=== PATIENT | female | born 1985 | race Caucasian/White ===

== ENCOUNTER 2018-10-20 16:10 | Inpatient (IN) ==
[2018-10-20] MEDS ORDERED: TYLENOL PO ONE (16:29)
[2018-10-20] MEDS ORDERED: NS 1,000 ML IV ONE ×3 (16:29→16:37)
[2018-10-20] MEDS ORDERED: ROCEPHIN 1 GM in NS 50 ML IV ONE (16:35)
[2018-10-20] MEDS ORDERED: ZOFRAN IV ONE (16:37)
[2018-10-20] MEDS ORDERED: MORPHINE IV ONE ×3 (16:37→19:35)
[2018-10-20 16:44] LABS: BASO# 0.03 X1000 (0.0-0.2); BASO% 0.2 % (0.0-0.8); EOS# 0.08 X1000 (0.0-0.7); EOS% 0.5 % (0.0-10.0); HEMATOCRIT 37.4 % (37.0-47.0); HEMOGLOBIN 12.6 g/dL (12.0-16.0); IMM GRAN# 0.09 X1000 (0.0-0.04); IMM GRAN% 0.6 % (0.0-0.5); LYMPH# 2.38 X1000 (1.2-3.4); MCH 30.8 PG (27-31); MCHC 33.7 g/dL (33-37); MCV 91.4 FL (81-99); MONO# 1.41 X1000 (0.11-0.59); MONO% 9.5 % (1.7-9.3); MPV 9.1 FL (7.4-10.4); NEUT# 10.87 X1000 (1.4-6.5); NEUT% 73.2 % (42.2-75.2); PLT 384 X1000 (130-400); RBC 4.09 XMIL (4.2-5.4); RDW 13.3 % (11.5-14.5); WBC 14.86 X1000 (4.8-10.8)
[2018-10-20 17:10] LABS: AGAP 17; ALB/GLOB RATIO 1.2; ALBUMIN 3.6 g/dL (3.5-5.0); ALKALINE PHOSPHATASE 115 U/L (32-104); AMYLASE 27 U/L (20-200); BUN 8 mg/dL (8-22); CALCIUM 8.6 mg/dL (8.8-10.2); CHLORIDE 91 mmol/L (98-107); CK PROFILE 25 U/L (24-173); COSMO 261; CREATININE 0.7 mg/dL (0.5-0.9); ESTIMATED GFR > 60; GLUCOSE 140 mg/dL (70-104); GOT 17 U/L (10-30); GPT 24 U/L (10-36); LIPASE 18 U/L (13-60); POTASSIUM 3.7 mmol/L (3.5-5.1); SODIUM 130 mmol/L (136-145); TCO2 22 mmol/L (25-35); TOTAL BILIRUBIN 0.24 mg/dL (0.20-1.00); TOTAL PROTEIN 6.6 g/dL (6.3-8.3)
[2018-10-20 17:31] LABS: INR 0.93; PROTIME 13.2 Seconds (11.0-16.0)
[2018-10-20 17:32] LABS: PTT 36.5 Seconds (22.3-41.8)
--- NOTE | 2018-10-20 18:02 | Diag Imaging Result Doc PS360 ---
CHEST-1 VIEW - 10/20/2018 INDICATION: FEVER COMPARISON: None FINDINGS: The lungs are normally expanded and clear. Heart size and mediastinal contours are normal. No pneumothorax or pleural effusion. IMPRESSION: Negative exam. Electronically signed by David Iniguez 10/20/2018 6:00 PM
--- NOTE | 2018-10-20 18:12 | Diag Imaging Result Doc PS360 ---
CT RENAL STONE SEARCH - 10/20/2018 INDICATION: LLQ, back pain COMPARISON: None FINDINGS: No radiodense renal stones. No significant hydronephrosis. There is some perinephric edema about the left kidney. The ureters and urinary bladder appear normal. Uterus, ovaries, and rectum are normal. No bowel obstruction or inflammation. The lung bases are clear and the heart size is normal. Bony structures are intact. IMPRESSION: No radiodense renal stones. There is significant perinephric edema all about the left kidney. This is highly suggestive of pyelonephritis or a recently passed stone. Correlate clinically. This exam was performed using automated exposure control, adjustment of mA or kV according to patient size, and/or use of iterative reconstruction technique Electronically signed by David Iniguez 10/20/2018 6:09 PM
[2018-10-20] MEDS ORDERED: CIPRO 400 MG/D5W 400 MG/200 ML IVPB IV ONE (18:17)
[2018-10-20 18:25] LABS: URINE SOURCE CATH
[2018-10-20 18:34] LABS: BILIRUBIN URINE NEGATIVE (NEGATIVE); BLOOD URINE SMALL (NEGATIVE); COLOR YELLOW; GLUCOSE URINE NEGATIVE (NEGATIVE); KETONE URINE NEGATIVE (NEGATIVE); LEUKOCYTES URINE SMALL (NEGATIVE); NITRITE URINE NEGATIVE (NEGATIVE); PH URINE 6.5; PROTEIN URINE 30 mg/dL (NEGATIVE); SP GRAVITY URINE 1.002; TURBIDITY URINE CLEAR (CLEAR); UROBILINOGEN URINE 2 mg/dL (NORMAL)
[2018-10-20 18:36] LABS: UR EPITHELIAL CELLS <10 /HPF (<10); URINE BACTERIA NEGATIVE /HPF; URINE RBC <10 /HPF (<10); URINE WBC <10 /HPF (<10)
--- NOTE | 2018-10-20 18:42 | PROVIDER DOCUMENTATION ---
This chart was entered by Kiersten Wooten Scribe, acting as scribe for Faizan Bowman CRNP. HPI-General Adult - General Chief Complaint: Flu Symptoms Stated Complaint: LOW BACK PAIN STOMACH PAIN/FEVER Time Seen by Provider: 10/20/18 16:14 Source: patient Allergies/Adverse Reactions: Patient Allergies Allergy/AdvReac Type Severity Reaction Status Date / Time No Known Allergies Allergy Verified 10/20/18 17:05 Home Medications: Home Medication List Medication Instructions Recorded Confirmed Last Taken Type NK [No Home Medications] 10/20/18 10/20/18 Unknown History - History of Present Illness -Gen Adult Nature of Presenting Problems: Patient is a 33 year old female who presents to the ED with multiple complaints. Patient states pain to lower abdomen, left flank and back. Patient states fever, nausea, vomiting and diarrhea. Patient states symptoms started 5 days ago. Patient states taking Tylenol at 1200. Patient denies urinary symptoms. Location of Pain/Injury: reports: abdomen (lower), back, other (left flank) Pain Radiation: reports: no radiation Quality of Pain: reports: aching Severity: reports: moderate Onset/Duration: reports: 5 days ago Timing: reports: still present Context/Activities at Onset: reports: light activity Modifying Factors: improves with: breathing (worse) Associated Symptoms: reports: diarrhea, fever/chills (fever), nausea, vomiting Similar Symptoms Previously?: Yes Recently seen or treated by another doctor?: No Review of Systems - Adult - REVIEW OF SYSTEMS - ADULT Constitutional: reports: fever. denies: chills, fatique Eyes: reports: no symptoms reported Ears, Nose, Mouth & Throat: reports: no symptoms reported Cardiovascular: reports: no symptoms reported Respiratory: reports: no symptoms reported Gastrointestinal: reports: abdominal pain (lower), diarrhea, nausea, vomiting Genitourinary: reports: flank pain (left). denies: dysuria, hematuria Musculoskeletal: reports: back pain. denies: joint pain, neck pain Integumentary: reports: no symptoms reported Neurological: reports: no symptoms reported Psychiatric: reports: no symptoms reported Endocrine: reports: no symptoms reported Hematologic/Lymphatic: reports: no symptoms reported Allergic/Immunologic: reports: no symptoms reported All Other Systems: Reviewed and Negative Past History - Adult - PAST MEDICAL HISTORY-ADULT Review of Records: reports: Nursing Assessment Review, Medications Reviewed, Social history reviewed & non-contributory. Major Childhood Illnesses: reports: denies history Cardiovascular: reports: denies history Respiratory: reports: denies history Gastrointestinal: reports: denies history Obstetrical/Gynecological: reports: denies history Genitourinary: reports: denies history Musculoskeletal: reports: denies history Neurological: reports: denies history Psychiatric: reports: denies history Endocrine/Immune: reports: denies history Other Conditions: reports: denies history - PRIOR SURGERIES/PROCEDURES Surgical/Procedure History: reports: reviewed, not pertinent - IMMUNIZATION STATUS Childhood Immunizations: See Nurse Assessment Flu Vaccine: See Nurse Assessment - FAMILY HISTORY Family History: reviewed, not pertinent - SOCIAL HISTORY Smoking: cigarettes, less than 1 pack/day Provider spent 3-5 mins advising pt. on dangers of tobacco.: Discussed manners to quit use, and f/u contacts for add'l counseling. Substance Use: denies Living Situation: family Physical Exam-General - PHYSICAL EXAM-ADULT Initial Vital Signs Reviewed: Yes - CONSTITUTIONAL General Appearance: alert, mild distress - HEAD, EARS, NOSE, MOUTH & THROAT HENMT: other (dry mucous membranes) - RESPIRATORY Respiratory: chest non-tender, lungs clear, normal breath sounds - CARDIOVASCULAR Cardiovascular: normal peripheral pulses, tachycardia - GASTROINTESTINAL (ABDOMEN) Abdominal Exam: normal bowel sounds, soft, tenderness (LLQ) - MUSCULOSKELETAL Back Exam: no vertebral tenderness, CVA tenderness (left) Extremity: non-tender, normal inspection - SKIN Integumentary: normal color, normal turgor, warm/dry - NEUROLOGIC Neurologic: grossly normal - PSYCHIATRIC Psych/Mental Status: other (distressed) Progress - PLAN OF CARE/RESULTS Progress/Plan/Lab Results: Vital Signs - 8 hr 10/20/18 16:15 Temperature 101 F H Pulse Rate 152 H Respiratory Rate 20 Blood Pressure 123/53 Orders Category Date Time Status Cardiac Monitoring DIRECTED Care 10/20/18 16:21 Active IV Insertion ORDERED Care 10/20/18 16:21 Active Notify MD of + Sepsis Screen NOW Care 10/20/18 16:21 Active Notify Physician As Ordered Care 10/20/18 16:21 Active CHEST-1 VIEW [RAD] Stat Exams 10/20/18 16:21 Ordered BLOOD CULTURE [BLDCUL] Stat Lab 10/20/18 16:21 Uncollected CBC WITH DIFF [HEME] Stat Lab 10/20/18 16:21 Uncollected CK PROFILE [SP CHEM] Stat Lab 10/20/18 16:21 Uncollected COMPREHENSIVE METABOLIC PANEL [CHEM] Stat Lab 10/20/18 16:21 Uncollected LACTATE, PLASMA [CHEM] Q3H Lab 10/20/18 16:30 Uncollected LACTATE, PLASMA [CHEM] Q3H Lab 10/20/18 19:30 Uncollected LACTATE, PLASMA [CHEM] Q3H Lab 10/20/18 22:30 Uncollected PROTIME WITH INR [COAG] Stat Lab 10/20/18 16:21 Uncollected PTT [COAG] Stat Lab 10/20/18 16:21 Uncollected TROPONIN T Stat Lab 10/20/18 16:21 Uncollected URINALYSIS W/POSS RFLX CULT [URINALYSIS] Stat Lab 10/20/18 16:21 Uncollected Oxygen Device Stat Oth 10/20/18 16:21 Active Result Diagrams: 10/20/18 16:30 10/20/18 16:30 - REASSESSMENT Reassessment #1 Time Reassessed: 17:25 (HR 110bpm.) Reassessment #2 Time Reassessed: 18:21 (Reviewed results with pt. Informed of possible admission. Pt states she is feeling some better. BP 97/60, HR 104 so much improvement from arrival.) Status: improving - EKG 1 Time of EKG reading by physician:: 16:22 EKG Read and Signed by:: Leander Abad EKG Interpretation (*Must complete 3 of following elements*): Abnormal Rate: 146 Rhythm: sinus tachycardia Comments: ST & T wave abnormality, consider anterolateral ischemia - XRAY 1 XRAY Study: Chest Impression: See EMR Report (The lungs are normally expanded and clear. Heart size and mediastinal contours are normal. No pneumothorax or pleural effusion. IMPRESSION: Negative exam. Electronically signed by David Iniguez 10/20/2018 6:00 PM) - CT/MRI 1 CT Study: Renal Stone Impression: See EMR Report (No radiodense renal stones. No significant hydronephrosis. There is some perinephric edema about the left kidney. The ureters and urinary bladder appear normal. Uterus, ovaries, and rectum are normal. No bowel obstruction or inflammation. The lung bases are clear and the heart size is normal. Bony structures are intact. IMPRESSION: No radiodense renal stones. There is significant perinephric edema all about the left kidney. This is highly suggestive of pyelonephritis or a recently passed stone. Correlate clinically. This exam was performed using automated exposure control , adjustment of mA or kV according to patient size, and/or use of iterative reconstruction technique Electronically signed by David Iniguez 10/20/2018 6: 09 PM) - CONSULTS/PCP/HOSPITALIST Notification #1 *Consult/PCP/Hospitalist*: hospitalist Time Discussed: 18:40 (Huey states will go to [facility] hospitalist) Reason/Comments: consult with Huey Consult Disposition: Admit Departure - Departure Date of Disposition Decision: 10/20/18 Time of Disposition Decision: 18:41 DIAGNOSIS: Pyelonephritis Sepsis Qualifiers: Sepsis type: sepsis due to unspecified organism Qualified Code(s): A41.9 - Sepsis, unspecified organism Disposition: ADMITTED INPATIENT 09 Certified Medical Emergency: Emergent Condition: Fair Referrals and Follow-Ups: None,PCP [Primary Care Provider] - - Critical Care Note This patient required my direct & personal management of CC.: Yes Total Time (mins): 45 Critical Care Statement: This patient required my direct personal management to treat or rule out processes, the absence of which, could potentiallly result in sudden, clinically significant life or limb threatening deterioration. Attestation - Physician/ SELAM Attestation Patient care was provided by Advanced Practice Provider:: Yes Advanced Practice Provider:: Faizan Bowman Advanced Practice Provider documentation review:: The Mid-level provider documentation, treatment plan and medical decision making was reviewed by the physician who agrees with all treatment and medical decision making by the MLP. The physician spent face to face time with patient:: No Advanced Practice Provider documentation review:: Supervising physician onsite and consulted in the evaluation and care of this patient. The physician did not have a face to face encounter with the patient. This chart was documented by the indicated scribe, (Kiersten Wooten Scribe) and accurately reflects the services I performed and decisions made by me, Faizan Bowman, SETH, as attested by the provider's signature.
[2018-10-20 19:14] LABS: UR AMPHETAMINES QUAL NONE DETECTED (NONE DETECT); UR BARBITUATES QUAL NONE DETECTED (NONE DETECT); UR BENZODIAZEPIN QUAL NONE DETECTED (NONE DETECT); UR CANNABINOIDS QUAL NONE DETECTED (NONE DETECT); UR COCAINE QUAL NONE DETECTED (NONE DETECT); UR METHADONE QUAL NONE DETECTED (NONE DETECT); UR OPIATES QUAL PRESUMPTIVE POSITIVE (NONE DETECT); UR OXYCODONE QUAL NONE DETECTED (NONE DETECT); UR PCP QUAL NONE DETECTED (NONE DETECT)
[2018-10-20] MEDS ORDERED: TORADOL IV ONE (19:35)
[2018-10-20] MEDS ORDERED: ZOFRAN IV PRN (21:51)
[2018-10-20] MEDS ORDERED: LOVENOX SUBQ SCH (21:51)
[2018-10-20] MEDS ORDERED: MORPHINE IV PRN (21:51)
[2018-10-20] MEDS: NS 1,000 ML IV SCH (22:55)
[2018-10-20] MEDS: TYLENOL PO SCH (22:55)
[2018-10-21] MEDS: TORADOL IV SCH ×5 (01:35→21:02)
[2018-10-21] MEDS: TYLENOL PO SCH (04:04)
--- NOTE | 2018-10-21 04:21 | HISTORY AND PHYSICAL ---
PHYSICIAN: No primary care physician. REASON FOR ADMISSION: One-week history of diffuse aches and pains and 1-day history of left flank pain. HISTORY OF PRESENT ILLNESS: Jovita Santiago is a 33-year-old lady with known past medical history of migraines and no other medical history. About a week ago she started complaining of headaches, diffuse aches and pains and thought she may have had the flu and wanted to ride it out by taking [id number] medications. About 2 days ago she realized that she was getting worse, i.e. worsening headache and weakness. She denied any cardiorespiratory or upper respiratory symptoms. Denied any GI complaints. Denied any urinary frequency, no discharge, abnormal periods, dysuria or hematuria. Yesterday she started noticing intense left flank pain which was sharp, nonradiating, worse with movement. She also complained of about a week's history of increasing fevers and chills. Complained of dull frontal headache for the same duration. REVIEW OF SYSTEMS: Twelve-system was done. Positive findings per HPI. ALLERGIES: No known allergies. HOME MEDICATION: None. SURGICAL HISTORY: She has had breast surgery to repair some galactoceles when she was breast feeding. FAMILY HISTORY: Negative for heart disease or diabetes. SOCIAL HISTORY: She smokes 1-1/2 packs per day, plans to quit. No alcohol use. She is . LAB WORK: White count is 14,000, hemoglobin 12, hematocrit 37 with 9% monocytes. Sodium is 130, glucose 140. Troponin is negative. Lactate is negative. PT and PTT are normal. Urine toxicology positive for opioids. UA with small leukocytes and small blood in urine. CT showed significant perinephric edema around the left kidney suggestive of pyelonephritis or recently passed stone. Chest film: Negative exam. PHYSICAL EXAMINATION: VITAL SIGNS: Blood pressure 111/75, heart rate 106, respiration 32, temperature is 98.1, 100% on room air. GENERAL: A young woman who is in moderate distress. She is A and O x3 with normal mood and affect. HEENT: Head is normocephalic, atraumatic. Eyes: PERRL. EOMI. She is anicteric and not pale. ENT and oropharynx exam grossly normal. NECK: Supple. No JVD or carotid bruit. No thyromegaly. CHEST: Clear when auscultated with good air entry in both lung malagon. CARDIOVASCULAR: First and second heart sounds are heard. No gallops, murmurs or rubs. Rhythm is regular. ABDOMEN: Full, soft with suprapubic tenderness, but no rebound or guarding. Significant left CVA tenderness. Bowel sounds are normal. RECTAL: Exam deferred at this time. EXTREMITIES: Good distal pulse volume in all extremities. Rhythm is regular, symmetrical. No edema, clubbing or peripheral cyanosis. NEUROLOGICAL: No gross focal deficits appreciated. No tremors. SKIN: Intact with no breakdown, lesion or erythema. Normal skin turgor. MUSCULOSKELETAL: Exam is grossly normal. ASSESSMENT: 1. Probable left acute pyelonephritis, ? papillary necrosis. 2. Hypernatremia. 3. History of migraines. PLAN: Patient will be empirically treated with antibiotics, analgesics, antiemetics and IV fluid. Await urine culture and modify treatment accordingly. If patient's symptoms do not improve in the next 48 hours, consider alternative diagnosis, i.e. noninfectious diagnosis. Check labs in a.m., i.e., CBC, BMP. Document objective efficacy of our treatment. cc: Kaiden Salcedo MD
[2018-10-21] MEDS: OXY IR PO PRN ×2 (04:33→21:46)
[2018-10-21] MEDS: NS 1,000 ML IV SCH ×4 (05:21→21:02)
[2018-10-21 07:28] LABS: BASO# 0.04 X1000 (0.0-0.2); BASO% 0.4 % (0.0-0.8); EOS# 0.12 X1000 (0.0-0.7); EOS% 1.2 % (0.0-10.0); HEMATOCRIT 29.8 % (37.0-47.0); HEMOGLOBIN 9.7 g/dL (12.0-16.0); IMM GRAN# 0.07 X1000 (0.0-0.04); IMM GRAN% 0.7 % (0.0-0.5); LYMPH# 2.74 X1000 (1.2-3.4); LYMPH% 27.2 % (20.5-51.1); MCH 30.8 PG (27-31); MCHC 32.6 g/dL (33-37); MCV 94.6 FL (81-99); MONO# 1.28 X1000 (0.11-0.59); MONO% 12.7 % (1.7-9.3); MPV 9.2 FL (7.4-10.4); NEUT# 5.82 X1000 (1.4-6.5); NEUT% 57.8 % (42.2-75.2); PLT 330 X1000 (130-400); RBC 3.15 XMIL (4.2-5.4); RDW 13.6 % (11.5-14.5); WBC 10.07 X1000 (4.8-10.8)
--- NOTE | 2018-10-21 07:35 | EKG Report ---
Test Performed on : 10/20/2018 4:22:48 PM Test Reason : ED. NO EKG ORDER FOR MUSE Blood Pressure : / mmHG Vent. Rate : 146 BPM Atrial Rate : 147 BPM P-R Int : 120 ms QRS Dur : 078 ms QT Int : 348 ms P-R-T Axes : 077 071 064 degrees QTc Int : [address] & T wave abnormality, consider anterolateral ischemia Abnormal ECG No previous ECGs available Unconfirmed Result
[2018-10-21 07:46] LABS: AGAP 10; BUN 9 mg/dL (8-22); CALCIUM 7.5 mg/dL (8.8-10.2); CHLORIDE 105 mmol/L (98-107); COSMO 274; CREATININE 0.6 mg/dL (0.5-0.9); ESTIMATED GFR > 60; GLUCOSE 94 mg/dL (70-104); POTASSIUM 3.3 mmol/L (3.5-5.1); SODIUM 138 mmol/L (136-145); TCO2 23 mmol/L (25-35)
[2018-10-21] MEDS ORDERED: NS 1,000 ML IV ONE (08:12)
[2018-10-21] MEDS: PROTONIX IV SCH (08:33)
[2018-10-21] MEDS: SODIUM CHLORIDE 0.9% INJ SCH (08:33)
[2018-10-21 10:28] LABS: URINE SOURCE CATH
[2018-10-21 10:33] LABS: BILIRUBIN URINE NEGATIVE (NEGATIVE); BLOOD URINE TRACE (NEGATIVE); COLOR YELLOW; GLUCOSE URINE NEGATIVE (NEGATIVE); KETONE URINE NEGATIVE (NEGATIVE); LEUKOCYTES URINE SMALL (NEGATIVE); NITRITE URINE NEGATIVE (NEGATIVE); PH URINE 6.5; PROTEIN URINE TRACE mg/dL (NEGATIVE); SP GRAVITY URINE 1.003; TURBIDITY URINE CLEAR (CLEAR); UROBILINOGEN URINE 3 mg/dL (NORMAL)
[2018-10-21 10:35] LABS: UR EPITHELIAL CELLS <10 /HPF (<10); URINE BACTERIA NEGATIVE /HPF; URINE RBC <10 /HPF (<10); URINE WBC <10 /HPF (<10)
--- NOTE | 2018-10-21 11:11 | PROGRESS NOTE ---
DATE: 10/21/2018 SUBJECTIVE: The patient reports still feeling pain in the left flank. Denies any fever or chills. OBJECTIVE: Vital Signs: Temperature 98.2 degrees, heart rate 86, respiratory rate 24, blood pressure 93/49, O2 saturation 100% on room air. General: The is a 33-year-old female lying in bed, in no acute distress. HEENT: Head is normocephalic, atraumatic. Cardiovascular: S1, S2 heard. No murmurs, gallops, or rubs. Regular rate and rhythm. Respiratory: Clear bilaterally to auscultation. No work of breathing or using accessory muscles. Abdomen: Soft, nontender to palpation. Bowel sounds present. No organomegaly. Extremities: No clubbing, cyanosis, or edema. Peripheral pulses present in both legs. CVA tenderness noted in the left flank. Neurological: Patient alert oriented x3. Moves 4 extremities. LABORATORY DATA: White cell count 10.07, hemoglobin 9.7, hematocrit 28.9, platelets 330,000 with BMP remarkable for potassium 3.3. ASSESSMENT AND PLAN: Left acute pyelonephritis. That is the result of the CT scan and also clinical symptoms points out our diagnosis. At this point, we are going to continue with IV antibiotics. Patient complaining of left flank pain. Considering that her blood pressure has gone a little bit low, we are going to provide IV fluids. We will avoid using narcotics that make her blood pressure to go down further. We will monitor this patient closely. cc: Scott Morrison MD
[2018-10-21] MEDS: OFIRMEV 1000 MG/ISOTONIC SOLN 1,000 MG/100 ML BOTTLE IV SCH ×3 (12:09→19:00)
[2018-10-21] MEDS ORDERED: ROCEPHIN 2 GM in NS 50 ML IV SCH (17:00)
[2018-10-21] MEDS ORDERED: DEMEROL ONE (17:06)
[2018-10-21] MEDS: DEMEROL IV PRN ×2 (17:08→21:03)
[2018-10-21] MEDS ORDERED: MELATONIN PO SCH (21:15)
[2018-10-21] MEDS: NICODERM PATCH TD SCH ×2 (21:46→21:47)
[2018-10-22] MEDS: OFIRMEV 1000 MG/ISOTONIC SOLN 1,000 MG/100 ML BOTTLE IV SCH ×2 (00:18→05:04)
[2018-10-22] MEDS: DEMEROL IV PRN ×4 (00:18→11:21)
[2018-10-22] MEDS: NS 1,000 ML IV SCH ×3 (00:32→06:08)
[2018-10-22] MEDS: TORADOL IV SCH ×2 (02:31→08:22)
[2018-10-22] MEDS: OXY IR PO PRN (04:02)
[2018-10-22 07:10] LABS: BASO# 0.02 X1000 (0.0-0.2); BASO% 0.2 % (0.0-0.8); EOS# 0.15 X1000 (0.0-0.7); EOS% 1.5 % (0.0-10.0); HEMATOCRIT 30.5 % (37.0-47.0); IMM GRAN# 0.07 X1000 (0.0-0.04); IMM GRAN% 0.7 % (0.0-0.5); LYMPH# 2.31 X1000 (1.2-3.4); LYMPH% 22.8 % (20.5-51.1); MCH 30.3 PG (27-31); MCHC 32.8 g/dL (33-37); MCV 92.4 FL (81-99); MONO# 0.93 X1000 (0.11-0.59); MONO% 9.2 % (1.7-9.3); MPV 9.1 FL (7.4-10.4); NEUT# 6.65 X1000 (1.4-6.5); NEUT% 65.6 % (42.2-75.2); PLT 384 X1000 (130-400); RDW 13.4 % (11.5-14.5); WBC 10.13 X1000 (4.8-10.8)
[2018-10-22 07:29] LABS: AGAP 10; BUN 5 mg/dL (8-22); CALCIUM 8.1 mg/dL (8.8-10.2); CHLORIDE 107 mmol/L (98-107); COSMO 274; CREATININE 0.5 mg/dL (0.5-0.9); ESTIMATED GFR > 60; GLUCOSE 88 mg/dL (70-104); POTASSIUM 3.2 mmol/L (3.5-5.1); SODIUM 139 mmol/L (136-145); TCO2 22 mmol/L (25-35)
[2018-10-22 07:30] VITALS: BP 118/69
[2018-10-22 07:52] LABS: BANDS 2 % (0-1); EOS 2 % (1-10); LYMPHS 22 % (21-51); MONO 4 % (1-9); SEGS 70 % (42-75)
[2018-10-22 07:53] LABS: HYPOCHROM 1+
[2018-10-22] MEDS: PROTONIX IV SCH (08:21)
[2018-10-22] MEDS: NICODERM PATCH TD SCH (08:22)
[2018-10-22] MEDS: SODIUM CHLORIDE 0.9% INJ SCH (08:22)
[2018-10-22] MEDS ORDERED: PROZAC PO SCH (10:45)
[2018-10-22] MEDS ORDERED: MICRO-K PO ONE (11:07)
[2018-10-22] MEDS ORDERED: KLOR-CON PO ONE (11:09)
[2018-10-22] MEDS ORDERED: POTASSIUM CHLORIDE 60 MEQ in NS 500 ML IV ONE (11:30)
[2018-10-22] MEDS ORDERED: NEURONTIN PO SCH (15:00)
--- NOTE | 2018-10-22 15:59 | DISCHARGE SUMMARY ---
ADMISSION DATE: 10/20/2018 DISCHARGE DATE: 10/22/2018 CONSULTATIONS: None. PERTINENT PROCEDURES: Renal CT. No radiodense renal stones or significant perinephric edema about the left kidney is highly suggestive of pyelonephritis or a recently passed kidney stone. DISCHARGE DIAGNOSES: 1. Left acute pyelonephritis. She was treated with IV antibiotics, and will be discharged on p.o. 2. Hypotension. She was treated with IV fluid. She is now normotensive. HISTORY OF PRESENT ILLNESS: Briefly, Ms. Santiago is a 33-year-old female with past medical history of migraines. No other significant past medical history. She reported a weight prior to her admission. She was having headaches, diffuse aches and pains, thought she may have had the flu, and treated herself with [id number] medications. Two days prior to this admission, she realized that she was getting worse with worsening headache and weakness. She had imaging done that revealed acute pyelonephritis. She was initiated on antibiotics, analgesics, antiemetics and IV fluids. She did have a bout of hypotension, believed to be secondary to pain medication which was stopped. She is now normotensive and clinically stable. She will be discharged home to continue a course of p.o. antibiotics. VITAL SIGNS: Temperature is 98.1 degrees, heart rate 76, respirations 18, blood pressure 118/69, and O2 is 100% on room air. DISCHARGE DIET: Regular. DISCHARGE MEDICATIONS: 1. Prozac 60 mg p.o. daily. 2. Gabapentin 900 mg p.o. t.i.d. 3. Melatonin 3 mg p.o. at bedtime. 4. Omnicef 300 mg p.o. b.i.d. for 10 days. 5. Damon 10/325 one tab p.o. b.i.d. p.r.n. 6. NicoDerm patch 21 mg TD daily. FOLLOWUP: Ms. Santiago is being discharged home with self care. She is to take all antibiotics as prescribed. She is to follow up with the PCP from the list that has been given to her. She can return to the ED or call 911 for any worsening of symptoms. Dictated by SETH Macedo for Scott Morrison MD Addendum: Patient seen and examined by myself. Agree with SETH note. It reflects my assessment and plan. Patient is being discharged in stable condition with oral antibiotics and pain medications as well. cc: Scott Morrison MD MTDD
== END 2018-10-22 11:51 | disposition home or self-care (01) | DRG 690 ==
LOC: ED 16:10 → 3N 20:42 → SUATTDRO 20:42
PROVIDERS: ATTEND Internal Medicine
CPT/HCPCS: 71010; 71045; 74176; 80048; 80053; 80101; 80301; 80307; 80324; 80345; 80346; 80353; 80358; 80361; 80365; 81001; 81025; 82150; 82550; 83605; 83690; 83992; 84484; 85025; 85610; 85730; 87040; 87088; 87275; 87276; 87804; 93005; 96361; 96365; 96367; 96375; 96376; 99285; A9270; C9113; G0431; G0434; G0479; G0480; J0131; J0696; J0744; J1650; J1885; J2175; J2270; J2405; J7030; S0164